=== PATIENT | female | born 1945 | race Caucasian/White ===

== ENCOUNTER 2023-10-17 18:04 | Inpatient (IN) | payer MEDICARE, MEDICAID ==
[2023-10-17] MEDS ORDERED: Ondansetron PF 4 MG/2 ML Vial IVP PRN (18:35)
[2023-10-17] MEDS ORDERED: Acetaminophen 650 MG Suppository PR PRN (18:35)
[2023-10-17] MEDS ORDERED: hydrALAZINE 20 MG/ML VIAL SLOW IVP PRN (18:35)
[2023-10-17] MEDS ORDERED: Ipratropium/Albuterol 3 ML NEB EZPAP PRN (19:43)
[2023-10-17 19:46] LABS: #Basophils 0.03 10x3/uL (0.0-0.2); %Basophils 0.6 % (0.0-1.0); %Eosinophils 3.6 % (0.0-10.0); %Lymphocytes 38.9 % (21.0-51.0); %Monocytes 8.2 % (0.0-10.0); %Neutrophils 48.5 % (42.0-75.0); Hematocrit 33.7 % (36.0-47.0); Hemoglobin 11.2 g/dL (12.0-16.0); Mean Corpuscular HGB CONC 33.2 g/dL (32.0-36.0); Mean Corpuscular Hemoglobin 29.5 pg (27.0-31.0); Mean Corpuscular Volume 88.7 fL (78.0-98.0); Platelet Count 164 10x3/uL (130-400); RBC Distribution Width 12.1 % (11.5-14.5)
[2023-10-17 20:00] LABS: ALT (SGPT) 14 U/L (8-55); AST (SGOT) 21 U/L (5-34); Albumin 3.7 g/dL (3.4-4.8); Alkaline Phosphatase 84 U/L (40-110); Anion Gap 15 mmol/L (10-20); BUN (Urea Nitrogen) 27 mg/dL (9.8-20.1); Bilirubin, Total 0.3 mg/dL (0.2-1.2); Calc. Creatinine Clearance 47 mL/min (70-130); Calcium 9.4 mg/dL (7.8-10.44); Carbon Dioxide 25 mmol/L (23-31); Chloride 106 mmol/L (98-107); Estimated GFR 56; Globulin 2.5 g/dL (2.4-3.5); Glucose 90 mg/dL (83-110); Magnesium 2.2 mg/dL (1.6-2.6); Phosphorus 3.4 mg/dL (2.3-4.7); Potassium 4.2 mmol/L (3.5-5.1); Protein, Total 6.2 g/dL (5.8-8.1); Sodium 142 mmol/L (136-145)
[2023-10-17] MEDS: Acetaminophen 325 MG TAB PO PRN (21:38)
[2023-10-17] MEDS: Calcium Carbonate 500 MG ChewTAB PO PRN (23:16)
[2023-10-17] MEDS: tiZANidine HCl 4 MG TAB PO SCH (23:16)
[2023-10-18] MEDS: traZODone HCl 50 MG TAB PO PRN (00:31)
[2023-10-18 06:40] LABS: Hemoglobin A1c 5.6 % (4.0-6.0)
[2023-10-18 06:59] LABS: Cardiac Risk 4.1 (Less than 4.5)
[2023-10-18] MEDS: Pantoprazole DR 40 MG TAB PO SCH (08:06)
[2023-10-18] MEDS: Aspirin 81 mg Enteric Coated Tablet PO SCH (08:06)
[2023-10-18] MEDS: Ondansetron ODT 4 MG TAB PO PRN (12:01)
[2023-10-18] MEDS: Senokot S 8.6-50 MG TAB PO PRN (12:01)
[2023-10-18] MEDS: Clopidogrel Bisulfate 75 MG TAB PO SCH (14:29)
[2023-10-18 18:09] LABS: Amphetamine Not Detected (NotDetected); Barbiturates Screen Not Detected (NotDetected); Benzodiazepine Screen Not Detected (NotDetected); Cocaine Metabolite Screen Not Detected (NotDetected); Methadone Not Detected (NotDetected); Methamphetamine Not Detected (NotDetected); Opiate Screen Not Detected (NotDetected); Oxycodone Screen Not Detected (NotDetected); Phencyclidine (PCP) Not Detected (NotDetected); THC/Cannabinoid Screen Not Detected (NotDetected); Tricyclic Screen Not Detected (NotDetected)
[2023-10-18 20:00] VITALS: BMI 39.6
[2023-10-18] MEDS: Atorvastatin Calcium 40 MG TAB PO SCH (20:43)
[2023-10-18] MEDS: Pramipexole Di-HCl 1 MG TAB PO SCH (20:43)
[2023-10-19 04:10] LABS: #Basophils 0.04 10x3/uL (0.0-0.2); %Basophils 0.8 % (0.0-1.0); %Eosinophils 3.4 % (0.0-10.0); %Lymphocytes 37.9 % (21.0-51.0); %Monocytes 8.3 % (0.0-10.0); %Neutrophils 49.4 % (42.0-75.0); Hematocrit 33.3 % (36.0-47.0); Mean Corpuscular Volume 87.9 fL (78.0-98.0); Mean Platelet Volume 9.9 fL (7.4-10.4); Platelet Count 183 10x3/uL (130-400); RBC Distribution Width 12.2 % (11.5-14.5); Red Blood Cell (RBC) Count 3.79 mill/uL (4.20-5.40)
[2023-10-19 04:48] LABS: Anion Gap 11 mmol/L (10-20); BUN (Urea Nitrogen) 18 mg/dL (9.8-20.1); Calc. Creatinine Clearance 109 mL/min (70-130); Calcium 9.2 mg/dL (7.8-10.44); Carbon Dioxide 26 mmol/L (23-31); Chloride 107 mmol/L (98-107); Estimated GFR 68; Glucose 100 mg/dL (83-110); Magnesium 2.1 mg/dL (1.6-2.6); Potassium 4.2 mmol/L (3.5-5.1); Sodium 140 mmol/L (136-145)
[2023-10-19] MEDS ORDERED: traMADol HCl 50 MG TAB PO PRN (08:48)
[2023-10-19] MEDS: Clopidogrel Bisulfate 75 MG TAB PO SCH (09:43)
[2023-10-19] MEDS: Enoxaparin 40 MG (0.4 mL) SYRINGE SC SCH (09:43)
[2023-10-19] MEDS ORDERED: Iopamidol 370 76% 100 ML VIAL ONE (10:39)
[2023-10-19 11:52] VITALS: BMI 39.6
[2023-10-19] MEDS: Diclofenac 1% 50 GM TOPICAL GEL TP SCH (13:27)
[2023-10-19] MEDS: Milk Of Magnesia 30 ML UDCUP PO SCH (16:32)
[2023-10-19] MEDS: Polyethylene Glycol 3350 17 GM Packet PO SCH (16:33)
[2023-10-19] MEDS: Senokot S 8.6-50 MG TAB PO SCH (20:49)
[2023-10-19] MEDS ORDERED: Enoxaparin 80 MG (0.8 mL) SYRINGE SC SCH (21:00)
[2023-10-20 05:07] LABS: #Basophils 0.04 10x3/uL (0.0-0.2); %Basophils 0.7 % (0.0-1.0); %Eosinophils 4.4 % (0.0-10.0); %Lymphocytes 33.2 % (21.0-51.0); %Monocytes 9.4 % (0.0-10.0); %Neutrophils 51.9 % (42.0-75.0); Hemoglobin 11.8 g/dL (12.0-16.0); Mean Corpuscular HGB CONC 32.8 g/dL (32.0-36.0); Mean Corpuscular Hemoglobin 28.5 pg (27.0-31.0); Mean Platelet Volume 9.9 fL (7.4-10.4); Platelet Count 196 10x3/uL (130-400); RBC Distribution Width 12.2 % (11.5-14.5); Red Blood Cell (RBC) Count 4.14 mill/uL (4.20-5.40)
[2023-10-20 05:44] LABS: Anion Gap 17 mmol/L (10-20); BUN (Urea Nitrogen) 17 mg/dL (9.8-20.1); Calc. Creatinine Clearance 90 mL/min (70-130); Calcium 9.7 mg/dL (7.8-10.44); Carbon Dioxide 26 mmol/L (23-31); Chloride 103 mmol/L (98-107); Estimated GFR 54; Glucose 117 mg/dL (83-110); Magnesium 2.3 mg/dL (1.6-2.6); Potassium 4.5 mmol/L (3.5-5.1); Sodium 141 mmol/L (136-145)
[2023-10-20] MEDS: Polyethylene Glycol 3350 17 GM Packet PO SCH (09:00)
[2023-10-20] MEDS ORDERED: Enoxaparin 30 MG (0.3 mL) SYRINGE SC SCH (09:00)
[2023-10-20] MEDS: Carvedilol 3.125 MG TAB PO SCH (09:00)
[2023-10-20] MEDS: Enoxaparin 30 MG (0.3 mL) SYRINGE SC SCH (09:00)
[2023-10-20] MEDS: Enoxaparin 100 MG (1 mL) SYRINGE SC SCH (09:00)
[2023-10-20] MEDS ORDERED: Enoxaparin 80 MG (0.8 mL) SYRINGE SC SCH (09:00)
[2023-10-20 16:49] VITALS: BP 139/72; TEMP 97.5
== END 2023-10-20 16:49 | disposition home or self-care (01) | DRG 69 ==
LOC: 2SE 18:04 → OBSVTOIN 10-19 10:57
PROVIDERS: ADMIT Internal Medicine; ATTEND Family Medicine
PROC: 4A00X4Z Measurement of Central Nervous Electrical Activity, External Approach (ICD-10-PCS; principal; 2023-10-18)
DX: G45.9 Transient cerebral ischemic attack, unspecified (principal); I38 Endocarditis, valve unspecified; I50.42 Chronic combined systolic (congestive) and diastolic (congestive) heart failure; I82.441 Acute embolism and thrombosis of right tibial vein; I11.0 Hypertensive heart disease with heart failure; M89.8X1 Other specified disorders of bone, shoulder; I25.10 Atherosclerotic heart disease of native coronary artery without angina pectoris; I44.7 Left bundle-branch block, unspecified; E78.5 Hyperlipidemia, unspecified; J44.9 Chronic obstructive pulmonary disease, unspecified; Z91.040 Latex allergy status; Z88.5 Allergy status to narcotic agent
CPT/HCPCS: 36415; 70496; 70498; 70544; 70551; 71045; 76377; 80048; 80053; 80061; 80306; 83036; 83735; 83880; 84100; 84443; 85025; 93306; 93880; 93970; 95700; 95711; 95819; 96372; G0378; J1650; Q0162; Q9967